=== PATIENT | female | born 1990 | race Caucasian/White ===

== ENCOUNTER 2020-10-13 20:26 | Emergency (ER) | payer MEDICAID, SELFPAY ==
--- NOTE | ~2020-10-13 | CT_ITS ---
EXAMINATION: CT ABDOMEN AND PELVIS WITH CONTRAST CLINICAL INFORMATION: Left-sided abdominal pain. Question hernia. COMPARISON: Previous CT of the abdomen and pelvis 03/28/2011 and pelvic ultrasound July 2016 TECHNIQUE: Multidetector volumetric images were obtained from the superior aspect of the liver through the pubic symphysis following administration of 97 mL of Omnipaque 350 intravenous contrast. Sagittal and coronal reformatted images were obtained on the technologist's workstation. Oral contrast: Yes This CT examination was performed using dose optimization techniques as appropriate, variously including the following: *Automated exposure control *Adjustment of mA and/or kV according to patient size (this includes techniques or standardized protocols for targeted exams where dose is matched to indication/reason for exam; i.e. extremities or head) *Use of iterative reconstruction technique DLP: 1291 mGy-cm FINDINGS: LUNG BASES: The visualized lung bases are unremarkable. LIVER, GALLBLADDER, AND BILIARY TREE: The liver is low in attenuation suggestive of fatty infiltration. The liver is slightly enlarged. There are gallstones in the gallbladder. There is no biliary duct dilatation. PANCREAS: Unremarkable. SPLEEN: Unremarkable. ADRENAL GLANDS: Unremarkable. KIDNEYS AND URETERS: The kidneys are normal in size, shape, and attenuation. No hydronephrosis, hydroureter, or calculi seen. No perinephric stranding. BLADDER: Unremarkable. GASTROINTESTINAL TRACT: The small and large bowel are unremarkable. The appendix is unremarkable. ABDOMINAL WALL: There is a small umbilical hernia containing fat. LYMPH NODES: Normal. VASCULAR: Unremarkable. PELVIC VISCERA: Uterus and ovaries are unremarkable. OSSEOUS STRUCTURES: Unremarkable. CT/CT abdomen pelvis w con IMPRESSION: Enlarged fatty liver. Small umbilical hernia containing fat.
[2020-10-13 20:36] VITALS: BP 136/67; PULSE 92; RESP 16; TEMP 36.3; O2SAT 98; BMI 52.7
--- NOTE | 2020-10-13 21:08 | ED.GENADULT ---
HPI - General Adult General Chief complaint: General Medical Stated complaint: ABD PAIN Time Seen by Provider: 10/13/20 21:08 Source: patient Mode of arrival: ambulatory History of Present Illness HPI narrative: This is a 29-year-old female without significant past medical history who presents with left sided abdominal pain for 2 months and has not been associated with any fevers, chills, night sweats, unexplained weight loss, nausea/vomiting, shortness of breath/chest pain/palpitations, urinary pain/burning/frequency, and patient has continued to have regular bowel movements daily. She states that the abdominal pain is worse with standing for long periods of time and that she has difficulty with laying on her left side as this causes increased discomfort. In addition, patient described feeling a ?lump?. In addition, patient complaints of left lower leg swelling that she attributes primarily to her job which requires her to stand without much change in position, this swelling generally resolves during sleeping when her legs are elevated. Related Data Allergies Allergy/AdvReac Type Severity Reaction Status Date / Time amoxicillin Allergy Unknown unknown Verified 10/13/20 20:34 Review of Systems Review of Systems: Pertinent positives and negatives as stated in HPI 10 point review of systems is otherwise negative. PMFSH Past Medical History Source: nursing notes reviewed Medical History Asthma Pre-eclampsia Social History Social History Advance Directives: No Advance Directives Information Provided: Yes Physical Exam Vital Signs: Vital Signs: Last Vital Signs Temp 97.3 F 10/13/20 20:36 Pulse 102 H 10/13/20 22:18 Resp 16 10/13/20 22:18 BP 126/68 10/13/20 22:18 Pulse Ox 98 10/13/20 22:18 Body Mass Index 52.7 VITAL SIGNS: Reviewed. GENERAL: Well developed, well nourished, in no acute distress. HEAD: Normocephalic/atraumatic EYES: PERRLA, EOMI NOSE: Nares patent bilateral OROPHARYNX: no oral lesions noted, posterior pharynx clear NECK: Supple, no adenopathy LUNGS: Normal breath sounds. No adventitious sounds or accessory muscle use. SpO2<98> CARDIOVASCULAR: Regular rate and rhythm without noted murmurs ABDOMEN: Obese, Soft, non-tender, non-distended with bowel sounds. Exam limited by body habitus EXTREMITIES: No cyanosis, clubbing or edema. NEUROLOGIC: Alert and oriented x 4. Strength and sensation to light touch were grossly intact x 4. Course Course Course Narrative: 29-year-old female with history and clinical presentation suggestive of possible lipoma versus hernia. On review of all investigations there are no acute findings to better explain the pain that patient is having. Despite a fat containing umbilical hernia being identified on the CT scan this is not in the location of patient's pain. Discussed with the patient at bedside and she was discharged in stable condition with instructions to follow-up with her primary care provider for further outpatient evaluation. Medical Decision Making Lab Data Result diagrams: 10/13/20 21:11 10/13/20 21:11 Labs: Lab Results 10/13/20 10/13/20 10/13/20 Range/Units 21:11 21:11 21:11 WBC 7.2 (4.8-10.8) X10*3/uL RBC 4.22 (4.20-5.50) X10*6/uL Hgb 11.5 L (12.0-16.0) g/dl Hct 36.4 L (37-47) % MCV 86.3 (80-98) fL MCH 27.3 (27.0-33.0) pg MCHC 31.6 (31.0-35.0) g/dl RDW 13.9 (11.0-16.0) % Plt Count 322 (160-400) X10*3/uL MPV 9.4 (9.4-12.3) fL Absolute Nucleated RBC 0.000 (0.0-0.012) X10*3/uL Nucleated RBC % (auto) 0.0 (0.0-0.2) /100WBC Hold Blue Top Sodium 139 (135-145) mmol/L Potassium 4.2 (3.3-5.1) mmol/L Chloride 106 (96-108) mmol/L Carbon Dioxide 24 (22-29) mmol/L Anion Gap 13 (12-20) BUN 11 (9-16) mg/dL Creatinine 0.74 (0.5-1.4) mg/dL Estim Creat Clear Calc 137.4 Estimated GFR > 60 Random Glucose 101 (60-115) mg/dL Calcium 9.0 (8.4-10.2) mg/dL Total Bilirubin 0.4 (0.0-1.0) mg/dL AST 16 (5-31) U/L ALT 12 (0-31) U/L Alkaline Phosphatase 68 (39-117) U/L B-Natriuretic Peptide 48 (<100) pg/mL Total Protein 7.5 (6.5-8.0) g/dL Albumin 4.1 (3.5-5.0) g/dL Urine Color Urine Appearance Urine pH (5.0-8.0) Ur Specific [place] (1.005-1.025) Urine Protein (NEG-TRACE) MG/DL Urine Glucose (UA) (NEG) MG/DL Urine Ketones (NEG) MG/DL Urine Blood (NEG) Urine Nitrite (NEG) Ur Leukocyte Esterase (NEG) Urine Test (NEGATIVE) 10/13/20 10/13/20 10/13/20 Range/Units 21:11 21:11 21:11 WBC (4.8-10.8) X10*3/uL RBC (4.20-5.50) X10*6/uL Hgb (12.0-16.0) g/dl Hct (37-47) % MCV (80-98) fL MCH (27.0-33.0) pg MCHC (31.0-35.0) g/dl RDW (11.0-16.0) % Plt Count (160-400) X10*3/uL MPV (9.4-12.3) fL Absolute Nucleated RBC (0.0-0.012) X10*3/uL Nucleated RBC % (auto) (0.0-0.2) /100WBC Hold Blue Top SEE NOTE Sodium (135-145) mmol/L Potassium (3.3-5.1) mmol/L Chloride (96-108) mmol/L Carbon Dioxide (22-29) mmol/L Anion Gap (12-20) BUN (9-16) mg/dL Creatinine (0.5-1.4) mg/dL Estim Creat Clear Calc Estimated GFR Random Glucose (60-115) mg/dL Calcium (8.4-10.2) mg/dL Total Bilirubin (0.0-1.0) mg/dL AST (5-31) U/L ALT (0-31) U/L Alkaline Phosphatase (39-117) U/L B-Natriuretic Peptide (<100) pg/mL Total Protein (6.5-8.0) g/dL Albumin (3.5-5.0) g/dL Urine Color YELLOW Urine Appearance CLEAR Urine pH 6.0 (5.0-8.0) Ur Specific [place] >= 1.030 H (1.005-1.025) Urine Protein NEG (NEG-TRACE) MG/DL Urine Glucose (UA) NEG (NEG) MG/DL Urine Ketones NEG (NEG) MG/DL Urine Blood NEG (NEG) Urine Nitrite NEG (NEG) Ur Leukocyte Esterase NEG (NEG) Urine Test NEGATIVE (NEGATIVE) Discharge Plan Discharge Clinical Impression: Hernia, umbilical, Abdominal discomfort in left upper quadrant Patient Disposition: Home, Self-Care Instructions: Umbilical Hernia (ED), Abdominal Pain (ED) Additional Instructions: 1. Tylenol 1000 mg, orally, every 6 hours as needed for pain control. Do not exceed 4000 mg within 24 hours. 2. Ibuprofen 400 mg, orally with milk or food, every 6 hours as needed for pain control. 3. Recommend compression stockings for your bilateral lower legs while at work. These are available [id number]. 4. Please follow-up with your primary care provider in the next 2-3 days for further outpatient re-evaluation. Do not hesitate to return to the emergency room for any acute worsening of your symptoms. Referrals: [facility] [Primary Care Provider] - 2 days
--- NOTE | 2020-10-13 21:11 | PC.NURSE ---
Labs and UA obtained, awaiting primary MD eval.
[2020-10-13 21:27] LABS: Glucose Urine UA NEG (NEG); Leukocyte Esterase Urine NEG (NEG); Nitrite Urine NEG (NEG); Specific Gravity - Urine >= 1.030 (1.005-1.025); Urine Blood NEG (NEG); Urine Ketones NEG (NEG); Urine Protein NEG (NEG-TRACE)
[2020-10-13 21:28] LABS: Hematocrit 36.4 % (37-47); Hemoglobin 11.5 g/dl (12.0-16.0); Mean Corpuscular HGB Conc 31.6 g/dl (31.0-35.0); Mean Corpuscular Hemoglobin 27.3 pg (27.0-33.0); Mean Corpuscular Volume 86.3 fL (80-98); Mean Platelet Volume 9.4 fL (9.4-12.3); Platelet Count 322 X10*3/uL (160-400); Red Blood Count 4.22 X10*6/uL (4.20-5.50); Red Cell Distribution Width 13.9 % (11.0-16.0); White Blood Count 7.2 X10*3/uL (4.8-10.8)
[2020-10-13 21:32] LABS: Appearance Urine CLEAR; Color Urine YELLOW; UPreg QC Valid YES; Urine Pregnancy NEGATIVE (NEGATIVE)
[2020-10-13 21:56] LABS: Alanine Aminotransferase 12 U/L (0-31); Albumin Level 4.1 g/dL (3.5-5.0); Alkaline Phosphatase 68 U/L (39-117); Anion Gap 13 (12-20); Aspartate Amino Transferase 16 U/L (5-31); Bilirubin Total 0.4 mg/dL (0.0-1.0); Blood Urea Nitrogen 11 mg/dL (9-16); Carbon Dioxide 24 mmol/L (22-29); Chloride 106 mmol/L (96-108); Creatinine Clr Calc Pharmacy 137.4; Estimated Glomerular Filt Rate > 60; Glucose Random 101 mg/dL (60-115); Potassium 4.2 mmol/L (3.3-5.1); Sodium 139 mmol/L (135-145); Total Protein 7.5 g/dL (6.5-8.0)
[2020-10-13 22:03] LABS: B Type Natriuretic Peptide 48 pg/mL (<100)
[2020-10-13 22:18] VITALS: BP 126/68; PULSE 102; RESP 16; O2SAT 98
--- NOTE | 2020-10-13 22:18 | PC.NURSE ---
IV established, labs obtained. VSS. Pt aware of plan for CT. Continue to monitor.
[2020-10-13] MEDS: 0.9 % Sodium Chloride 1,000 ML 999 ML IV (22:19)
--- NOTE | 2020-10-13 22:35 | PC.NURSE ---
Pt ambulating to CT.
[2020-10-13] MEDS: iohexoL 350 MG/ML 100 ML INFUS..BTL IV (22:49)
== END 2020-10-13 23:37 | disposition home or self-care (01) ==
PROVIDERS: Emergency Provider Student in an Organized Health Care Education/Training Program
DX: K42.9 Umbilical hernia without obstruction or gangrene (principal); R10.30 Lower abdominal pain, unspecified; M79.89 Other specified soft tissue disorders
CPT/HCPCS: 36415; 74177; 80053; 81003; 81025; 83880; 85027; 96365; 96375; 99284; Q9967

== ENCOUNTER → 2022-10-17 09:45 | Outpatient (BNVA) | payer OTHER, MEDICAID, SELFPAY | PROVIDERS: Visit Provider Nurse Practitioner Family ==

== ENCOUNTER → 2022-11-14 09:48 | Outpatient (REF) | payer OTHER, MEDICAID, SELFPAY | LOC: HO.SL 09:48 | PROVIDERS: Visit Provider Nurse Practitioner Family | DX: G47.33 Obstructive sleep apnea (adult) (pediatric) (principal) | CPT/HCPCS: 95806 ==

== ENCOUNTER 2025-05-19 15:05 | Outpatient (REF) | payer OTHER, MEDICAID, SELFPAY ==
--- OUTSIDE RECORDS SUMMARY | 2025-05-18 15:40 | XMS_ITS | Encounter Summary ---
Author Organization [employer] Address [address] [facility] [address] [place] [address] Care Team Providers Care Medical Typist Name Role Phone Mago Street MD Primary Care Provider [phone] Reason for Referral * Imaging (STAT) - Authorized Specialty Diagnoses / Procedures Referred By Contac t Referred To Contact Cardiology Diagnoses Spontaneous bruising Pain of right calf Procedures Vascular US lower extremity venous duplex right Kait Campa NP [address] [place] [address] Phone: tel: fax: [address] [address] Phone: tel: fax: Referral ID Status Reason Start Date Expiration Date Visits Requested Visits Authorized [id number] Authorized Perform Procedure 5 05/19/2026 1 1 Encounter Details Date Type Department Care Team (Late st Contact Info) Description 05/18/2025 3:40 PM EST Office Visit [facility] [address], [place] [phone] Kait Campa NP [address], [place] [phone] Elevated blood pressure reading in office without diagnosis of hypertension (Primary Dx); Spontaneous bruising; Pain of right calf; Bilateral lower extremity edema Social History Tobacco Use Types Packs/Day Years Used Date Smoking Tobacco: Never Smokeless Tobacco: Never Housing Stability Answer Date Recorded What is your housing situation today? I have housing today, but I am worried about losing housing in the future 04/14/[address] you li ve. Do you have problems with any of the following? None of the above 04/14/2023 Food Insecurity Answer Date Recorded Within the past 12 months, y ou worried that your food would run out before you got money to buy more: Never True 04/14/2023 Within the past 12 months,th e food you bought just didn't last and you didn't have enough money to get more: Never True 11/2022 Transportation Answer Date Recorded In the past 12 months, has l ack of transportation kept you from medical appts, meetings, work or from getting things needed for daily living? No 04/14/2023 Utilities Answer Date Recorded In the past 12 months, has t he electric, gas, oil or water company threatened to shut off services in your home? No 04/14/2023 Depression Answer Date Recorded Patient Health Questionnaire-2 Score 0 06/21/2022 Comments Unknown Sex and Gender Information Value Date Recorded Sex Assigned at Female 04/08/2022 10:18 AM EDT Legal Sex Female 10:18 AM EDT Gender Identity Female 04/08/2022 10:18 AM EDT Sexual Orientation Straight 04/08/2022 10 :18 AM EDT documented as of this encounter Last Filed Vital Signs Vital Sign Reading Time Taken Comments Blood Pressure 159/108 05/18/2025 4:01 PM EST Pulse 100 05/18/2025 4:01 PM EST Temperature 37.6 C (99.6 F) 05/18/2025 4:01 PM EST Respiratory Rate 25 05/18/2025 4:01 PM EST Oxygen Saturation 98% 05/18/2025 4:01 PM EST Inhaled Oxygen Concentration - - Weight 118 kg (261 lb) 05/18/2025 4:01 PM EST Height 152.4 cm (5') 05/18/2025 4:01 PM EST Body Mass Index 50.97 05/18/2025 4:01 PM EST documented in this encounter Progress Notes * Kait Campa NP - 05/18/2025 3:40 PM EST Images from the original note were not included. SUBJECTIVE: Rupali Macdonald is a 34 y.o. female who presents with complaints of: right calf pain and bruising Rupali Macdonald, 34-year-old female - Noticed tight feeling in right calf area starting Monday, May 12, 2025, after standing in [employer] for 8 hours at work - Sharp pain in right calf on Saturday, May 17, 2025, followed by appearance of bruise in same area - Persistent mild pain in right calf, worsens with prolonged sitting, improves with walking - Swelling in right leg, more prominent than left, ongoing for approximately 3 months - Occasional random bruises in the past, but not spontaneous bruising without trauma - Denies history of hitting leg or trauma to affected area - Denies random gum bleeding, dark colored stool, heavy breathing, dizziness, chest pain, shortnessof breath - Concerned about possible blood clot due to symptoms and online information - Reports taking control inconsistently and frequent use of Benadryl for intermittent hives around neck and face, resolves with medication - No recent travel Review of Systems Constitutional: Negative. Negative for chills and fever. Respiratory: Negative for chest tightness and shortness of breath. Cardiovascular: Negative for chest pain. Gastrointestinal: Negative for abdominal pain, constipation, diarrhea and nausea. Genitourinary: Negative for dysuria. Musculoskeletal: Positive for myalgias. Negative for arthralgias, back pain and neck pain. See HPI Skin: Negative. Negative for rash and wound. Neurological: Negative for weakness, light-headedness and headaches. Psychiatric/Behavioral: Negative for behavioral problems, confusion, decreased concentration and suicidal ideas. Current Medications[1] Allergies[2] OBJECTIVE: Vitals: 05/18/25 1601 BP: (!) 159/108 BP Location: Right arm Patient Position: Sitting BP Cuff Size: Large adult Pulse: 100 Resp: 25 Temp: 99.6 ??F (37.6 ??C) TempSrc: Oral SpO2: 98% Weight: 261 lb (118 kg) Height: 5' (1.524 m) Physical Exam Vitals reviewed. Constitutional: General: She is not in acute distress. Appearance: Normal appearance. She is not ill-appearing. HENT: Head: Normocephalic and atraumatic. Right Ear: External ear normal. Left Ear: External ear normal. Nose: Nose normal. Eyes: General: No scleral icterus. Extraocular Movements: Extraocular movements intact. Cardiovascular: Rate and Rhythm: Normal rate and regular rhythm. Pulses: Normal pulses. Heart sounds: Normal heart sounds. Pulmonary: Effort: Pulmonary effort is normal. No respiratory distress. Breath sounds: Normal breath sounds. Musculoskeletal: General: Normal range of motion. Cervical back: Normal range of motion. Skin: General: Skin is warm. Findings: Bruising and ecchymosis present. Comments: See image below Neurological: General: No focal deficit present. Mental Status: She is alert and oriented to person, place, and time. Gait: Gait normal. Psychiatric: Mood and Affect: Mood normal. Behavior: Behavior normal. ASSESSMENT/PLAN: Elevated blood pressure reading in office without diagnosis of hypertension: - Elevated blood pressure noted in office today and during last visit (08/18/24). Asymptomatic. No current antihypertensive therapy. - Discussed initiatiation of antihypertensive medication with scheduled follow- up appointment with primary care provider on June 15, 2024 at 3:30 PM. - Will send labetalol 100 mg BID to pharmacy on file. Selected labetalol over other first line agents due to patient's inconsistent use of OCP in last 2 weeks, unclear status and prexistingbilateral lower extremity edema report. Recommended blood pressure monitoring at home at least three times per week. Scheduled nurse visit for blood pressure check in approximately two weeks. - Diet and lifestyle modifications reviewed - Risks and side effects: Discussed potential risks of uncontrolled hypertension, including syncopeand stroke. Patient consented to initiation of medication. Unilateral calf pain, ecchymosis, and edema with concern for deep vein thrombosis or muscle injury: - Differential diagnosis includes deep vein thrombosis and muscle injury. Concern for clot due to unilateral swelling and ecchymosis. - Ordered right lower extremity ultrasound to evaluate for deep vein thrombosis. - Ordered laboratory studies to eval for futher evlauation of electrolyte disturbances and possiblebleding disorder including complete blood count and coagulation profile to assess for bleeding disorder. - Outlined area of ecchymosis for monitoring. - Advised to seek emergency care if dyspnea, increased swelling, or expansion of ecchymosis occurs. Recurrent urticaria: - Recurrent urticaria managed with antihistamines. - F/u with PCP Assessment & Plan Elevated blood pressure reading in office without diagnosis of hypertension Orders: labetalol (Normodyne) 100 MG tablet; Take 1 tablet (100 mg) by mouth 2 times daily. Spontaneous bruising Orders: Comprehensive Metabolic Panel; Future CBC auto differential; Future Prothrombin Time-INR; Future Partial Thromboplastin Time, Activated (APTT); Future Vascular US lower extremity venous duplex right; Future Pain of right calf Orders: Vascular US lower extremity venous duplex right; Future Bilateral lower extremity edema -chronic -follow-up with PCP Future Appointments Date Time Provider Department Center 06/07/2025 3:30 PM [facility] TEAM NURSE MEDICINE [facility] 06/15/2025 3:[address] MD MEDICINE [facility] This note was drafted using Ambient (AI) technology. The patient/patient's guardian has been informed and has consented to the use of this technology: Yes [1] Current Outpatient Medications: betamethasone valerate (Valisone) 0.1 % cream, Apply topically 2 times daily., Disp: 30 g, Rfl: 0 Blood Pressure kit, 1 each 2 times daily., Disp: 1 kit, Rfl: 0 cetirizine (ZyrTEC) 10 MG tablet, Take 1 tablet (10 mg) by mouth Once per day. Prn., Disp: 30 tablet, Rfl: 0 EPINEPHrine (Epipen) 0.3 MG/0.3ML injection syringe, Inject 0.3 mL (0.3 mg) as directed 1 (one) time if needed for anaphylaxis. Inject into upper leg. Call 911 after use., Disp: 2 each, Rfl: 0 ferrous sulfate (Fe Tabs) 325 (65 Fe) MG EC tablet, Take one tab po daily. Do not crush, chew, or split., Disp: 90 tablet, Rfl: 11 hydrOXYzine pamoate (Vistaril) 25 MG capsule, Take 1 capsule (25 mg) by mouth every 6 (six) hours if needed for itching. May take 2 capsules q 6 hours prn. May cause drowsinees, Disp: 40 capsule, Rfl: 0 labetalol (Normodyne) 100 MG tablet, Take 1 tablet (100 mg) by mouth 2 times daily., Disp: 60 tablet, Rfl: 1 levothyroxine (Synthroid, Levoxyl) 50 MCG tablet, TAKE ONE TABLET BY MOUTH EVERY DAY, Disp: 90 tablet, Rfl: 0 Yft-Dn-Dhbcjd 0.18/0.215/0.25 MG-25 MCG tablet, TAKE 1 TABLET BY MOUTH EVERY DAY, Disp: 84 tablet, Rfl: 3 [2] Allergies Allergen Reactions Amoxicillin documented in this encounter Plan of Treatment Upcoming Encounters Date Type Department Care Team (Late st Contact Info) Description 06/07/2025 3:30 PM EST Clinical Support [facility] [address] [place] [phone] 06/15/2025 3:30 PM EST Office Visit [phone] Mago [address] MD [address] [place] [phone] documented as of this encounter Procedures Procedure Name Priority Date/Time Associated Diagnosis Comments CBC WITH AUTO DIFFERENTIAL Routine 05/19/2025 3:08 PM EST Spontaneous bruising APTT Routine 05/19/2025 3:08 PM EST Spontaneous bruising PROTHROMBIN TIME-INR Routine 05/19/2025 3:08 PM EST Spontaneous bruising COMPREHENSIVE METABOLIC PANEL Routine 05/19/2025 3:08 PM EST Spontaneous bruising documented in this encounter Results * Partial Thromboplastin Time, Activated (APTT) (05/19/2025 3:08 PM EST) Partial Thromboplastin Time 28.6 26.7 - 34.1 [facility] Blood Venous blood specimen / Unknown 05/19/2025 3:08 PM EST 05/19/2025 5:48 PM EST us Kait Campa NP LAB BLOOD ORDERABLES Final Resu lt [facility] [address] [place] [address] [phone] * Prothrombin Time-INR (05/19/2025 3:08 PM EST) [facility] Prothrombin Time 11.4 11.2 - 13.5 [facility] INTERNATIONAL NORM RATIO 0.9 0.9 - 1.1 [facility] Comment:INTERNATIONAL NORMAL IZED RATIO (INR) REFERENCE RANGES Reference RangeFor patients not on anticoagulant therapy: 0.9 - 1.1INR ranges for oral anticoagulanttherapy:For prevention and treatment of venous thrombosis and pulmonary embolism: 2.0 - 3.0For acute myocardial infarction with aspirin therapy: 2.0 - 3.0For acute myocardial infarction without aspirin therapy: 3.0 - 4.0For patients with mechanical prosthetic heart valves: 2.5 - 3.5 Blood Venous blood specimen / Unknown 05/19/2025 3:08 PM EST 05/19/2025 5:48 PM EST Kait Campa [employer] LAB BLOOD ORDERABLES Final Resu lt [facility] [address] [place] [address] [phone] * (ABNORMAL) CBC auto differential (05/19/2025 3:08 PM EST) [facility] White Blood Count 7.3 4.8 - 10.8 X10*3/uL [facility] Red Blood Count 4.11(L) 4.20 - 5.50 X10*6/uL [facility] Hemoglobin 11.1(L) 12.0 - 16.0 g/dl [facility] Hematocrit 34.7(L) 37.0 - 47.0 % [facility] Mean Corpuscular Volume 84.4 80.0 - 98.0 fL [facility] Mean Corpuscular Hemoglobin 27.0 27.0 - 33.0 pg [facility] Mean Corpuscular HGB Conc 32.0 31.0 - 35.0 g/dl [facility] Red Cell Distribution Width 13.9 11.0 - 16.0 % [facility] Platelet Count 351 160 - 400 X10*3/uL [facility] Mean Platelet Volume 9.3(L) 9.4 - 12.3 fL [facility] Neutrophils Percent Auto 52.4 45 - 73 % [facility] Imm Gran Pct Auto 0.3 0.0 - 0.4 % [facility] Lymphocytes Percent Auto 37.6 20 - 40 % [facility] Monocytes Percent Auto 7.0 2 - 11 % [facility] Eosinophils Percent Auto 2.3 0 - 4 % [facility] Basophils Percent Auto 0.4 0 - 2 % [facility] NRBC Pct Auto 0.0 0.0 - 0.2 /100WBC [facility] Neutrophils Absolute Auto 3.8 2.0 - 8.3 x10*3/uL [facility] Imm Gran Abs Auto 0.02 0.00 - 0.03 X10*3/uL [facility] Lymphocytes Absolute Auto 2.7 1.2 - 4.9 X10*3/uL [facility] Monocytes Absolute Auto 0.5 0.1 - 1.2 X10*3/uL [facility] Eosinophils Absolute Auto 0.2 0.0 - 0.4 X10*3/uL [facility] Basophils Absolute Auto 0.0 0.0 - 0.2 X10*3/uL [facility] NRBC Abs Auto 0.000 0.0 - 0.012 X10*3/uL [facility] Blood Venous blood specimen / Unknown 05/19/2025 3:08 PM EST 05/19/2025 5:48 PM EST us Kait Campa [employer] LAB BLOOD ORDERABLES Final Resu lt [facility] [address] [place] [phone] * Comprehensive Metabolic Panel (05/19/2025 3:08 PM EST) Sodium 138 135 - 145 mmol/L [facility] Potassium 3.7 3.3 - 5.1 mmol/L [facility] Chloride 106 96 - 108 mmol/L [facility] Carbon Dioxide 24 22 - 29 mmol/L [facility] Anion Gap 12 12 - 20 [facility] Urea Nitrogen (BUN) 13 9 - 16 mg/dL [facility] Creatinine, Serum 0.55 0.5 - 1.4 mg/dL [facility] Estimated Glomerular Filt Rate >60 [facility] Comment:Chronic Kidney Disea se: Estimated GFR < 60 mL/min/1.71d0[place] Kidney Disease: Estimated GFR < 15 mL/min/1.73m2 Glucose 97 60 - 115 mg/dL [facility] Calcium 8.8 8.4 - 10.2 mg/dL [facility] Bilirubin, Total 0.3 0.0 - 1.0 mg/dL [facility] Aspartate Amino Transferase 23 5 - 31 U/L [facility] Alanine Aminotransferase 19 0 - 31 U/L [facility] Total Protein 7.3 6.5 - 8.0 g/dL [facility] Albumin Level 4.1 3.5 - 5.0 g/dL [facility] Alkaline Phosphatase 66 39 - 117 U/L [facility] Blood Venous blood specimen / Unknown 05/19/2025 3:08 PM EST 05/19/2025 5:48 PM EST Kait Avila [employer] LAB BLOOD ORDERABLES Final Resu lt [facility] [address] [place] [address] [phone] documented in this encounter Visit Diagnoses Diagnosis Elevated blood pressure reading in office without diagnosis of hypertension- Primary Spontaneous bruising Spontaneous ecchymoses Pain of right calf Bilateral lower extremity edema documented in this encounter Care Teams Medical Typist Relationship Specialty Start Date End Date Mago Street MD [address] [place] [phone] PCP - General Family Medicine 12/24/13 documented as of this encounter
[2025-05-19 17:52] LABS: MANUAL DIFF FLAG NO
[2025-05-19 18:24] LABS: INTERNATIONAL NORM RATIO 0.9 (0.9-1.1); Prothrombin Time 11.4 SEC (11.2-13.5)
[2025-05-19 18:25] LABS: Hematocrit 34.7 % (37.0-47.0); Hemoglobin 11.1 g/dl (12.0-16.0); Imm Gran Abs Auto 0.02 X10*3/uL (0.00-0.03); Imm Gran Pct Auto 0.3 % (0.0-0.4); Lymphocytes Absolute Auto 2.7 X10*3/uL (1.2-4.9); Mean Corpuscular HGB Conc 32.0 g/dl (31.0-35.0); Mean Corpuscular Hemoglobin 27.0 pg (27.0-33.0); Mean Corpuscular Volume 84.4 fL (80.0-98.0); NRBC Abs Auto 0.000 X10*3/uL (0.0-0.012); NRBC Pct Auto 0.0 /100WBC (0.0-0.2); Platelet Count 351 X10*3/uL (160-400); Red Blood Count 4.11 X10*6/uL (4.20-5.50); White Blood Count 7.3 X10*3/uL (4.8-10.8)
[2025-05-19 18:26] LABS: Alanine Aminotransferase 19 U/L (0-31); Albumin Level 4.1 g/dL (3.5-5.0); Alkaline Phosphatase 66 U/L (39-117); Anion Gap 12 (12-20); Aspartate Amino Transferase 23 U/L (5-31); Blood Urea Nitrogen 13 mg/dL (9-16); Calcium 8.8 mg/dL (8.4-10.2); Carbon Dioxide 24 mmol/L (22-29); Chloride 106 mmol/L (96-108); Estimated Glomerular Filt Rate > 60; Partial Thromboplastin Time 28.6 SEC (26.7-34.1); Potassium 3.7 mmol/L (3.3-5.1); Sodium 138 mmol/L (135-145); Total Protein 7.3 g/dL (6.5-8.0)
--- OUTSIDE RECORDS SUMMARY | 2025-05-19 22:37 | XMS_ITS | Clinical Summary ---
Author Organization [employer] Address [address] [facility] 7[address] [place] [address] Care Team Providers Care Associate Software Development Engineer Name Role Phone Mago Street MD Primary Care Provider [phone]- [phone] Allergies Active Allergy Reactions Criticality Noted Date Comments Amoxicillin 11/05/2012 Medications ferrous sulfate (Fe Tabs) 325 (65 Fe) MG EC tabletIndications: Iron deficiency Take one tab po daily. Do not crush, chew, or split. 90 tablet 11 06/27/19 23 Active cetirizine (ZyrTEC) 10 MG tablet Take 1 tablet (10 mg) by mouth Once per day. Prn. 30 tablet 08/19/19 25 Active EPINEPHrine (Epipen) 0.3 MG/0.3ML injection syringe Inject 0.3 mL (0.3 mg) as directed 1 (one) time if needed for anaphylaxis. Inject into upper leg. Call 911 after use. 2 each 08/19/19 25 026 Active hydrOXYzine pamoate (Vistaril) 25 MG capsule Take 1 capsule (25 mg) by mouth every 6 (six) hours if needed for itching. May take 2 capsules q 6 hours prn. May cause drowsinees 40 capsule 08/19/19 25 Active betamethasone valerate (Valisone) 0.1 % cream Apply topically 2 times daily. 30 g 08/19/19 25 Active Blood Pressure kit 1 each 2 times daily. 1 kit 08/19/19 25 026 Active levothyroxine (Synthroid, Levoxyl) 50 MCG tabletIndications: Acquired hypothyroidism TAKE ONE TABLET BY MOUTH EVERY DAY 90 tablet 08/31/19 25 Active Ixy-Vu-Tinxgw 0.18/0.215/0.25 MG-25 MCG tabletIndications: Family planning TAKE 1 TABLET BY MOUTH EVERY DAY 84 tablet 3 5 3:49 PM EST 02/10/20 25 Active labetalol (Normodyne) 100 MG tabletIndications: Elevated blood pressure reading in office without diagnosis of hypertension Take 1 tablet (100 mg) by mouth 2 times daily. 60 tablet 1 5 3:21 PM EST 05/19/20 25 026 Active NIFEdipine XL (Procardia XL) 30 MG 24 hr tabletIndications: Elevated blood pressure reading in office without diagnosis of hypertension Take 1 tablet (30 mg) by mouth Once per day. Do not crush, chew, or split. 30 tablet 1 05/19/20 25 025 Discontin ued(Alter frank therapy) Active Problems Problem Noted Date Diagnosed Date Preventative health care 11/19/2022 Overview (09/01/2024): -next comprehensive annual evaluation due after -eye care facilitated by -dental home is -gianluca care proxy Iron deficiency 11/19/2022 Overview (11/19/2022): Lab Results Component Value Date FERRITIN 5 (L) 06/21/2022 HGB 11.3 (L) 06/21/2022 HEMATOCRIT 34.3 (L) 06/21/2022 IRONTOTAL 51 06/21/2022 -ferrous sulfate restarted 06/27/2022 Acquired hypothyroidism 06/21/2022 Overview (11/19/2022): Lab Results Component Value Date TSH 6.69 (H) 06/21/2022 -levothyroxine 50mcg restarted 06/27/2022 Vitamin D deficiency 06/21/2022 Overview (11/19/2022): Vitamin D,1,25 (OH)2, Total Date Value Ref Range Status 06/21/2022 34 18 - 72 pg/mL Final Apnea 06/21/2022 Overview (11/19/2022): -seen by neurology at [facility] 10/2022, home sleep study ordered Snoring 06/21/2022 Family planning 06/21/2022 Overview (11/19/2022): -Pt likes to use control pills. All options discussed. -continue [id number] Assessment & Plan (06/21/2022 10:24 AM EST): Pt likes to use control pills. She does not like naxplonon. All options were discussed. Gynecologic exam normal 06/21/2022 Overview (06/21/2022): Pap co-testing done 06/21/2022. Assessment & Plan (06/21/2022 10:48 AM EST): Pap co-testing done 06/21/2022. Morbid obesity (CMS/HCC) 11/05/2012 Encounters Date Type Department Care Team Description 05/18/2025 3:40 PM EST Office Visit [facility] [address] [place] [phone] Kait Campa NP Elevated blood pressure reading in office without diagnosis of hypertension (Primary Dx); Spontaneous bruising; Pain of right calf; Bilateral lower extremity edema 05/18/2025 Travel from Last 3 Months Immunizations Immunization Administration Dates Next Due HPV, Quadrivalent 11/08/2013,07/24/2012 Influenza, IIV3, injectable 07/01/2014, 3,08/20/2011 Tdap 01/29/2012 Social History Tobacco Use Types Packs/Day Years Used Date Smoking Tobacco: Never Smokeless Tobacco: Never Tobacco Cessation:Counseling Given: Not Answered Housing Stability Answer Date Recorded What is [...] Orientation Straight 04/08/2022 10 :18 AM EDT Last Filed Vital Signs Vital Sign Reading [...] Mass Index 50.97 05/18/2025 4:01 PM EST Plan of Treatment Upcoming Encounters Date Type Department Care Team (Late st Contact Info) Description 06/07/2025 3:30 PM EST Clinical Support [facility] [address] [place] [address] [phone] 06/15/2025 3:30 PM EST Office Visit [facility] [address] [place] [address] MD [address] [place] [phone] Health Maintenance Due Date Last Done Comments Disability Screening 1992 Alcohol/Substance Use Screening 2004 Family Planning (PISQ) 11/18/2007 Hepatitis B Vaccines (1 of 3 - 19+ 3-dose series) 11/18/2011 HPV Vaccines (3 - 3-dose series) 01/31/2014 11/08/2013, 07/24/2012 DTaP/Tdap/Td Vaccines (2 - T d or Tdap) 01/28/2022 01/29/2012 Depression Screening 06/21/2023 06/21/2022, 06/21/2022 SDOH Screening 06/21/2023 06/21/2022 COVID-19 Vaccine (1 - 2024-2 6 season) 2025 Influenza Vaccine (#1) 2025 5, 07/06/2012, 08/20/2011 Tobacco Screening 05/19/2026 05/19/2025 Cervical Cancer Screening 06/21/2027 HPV/Cotest 06/21/2027 06/21/2022 Lipid Panel 06/21/2027 06/21/2022 Pap Smear 06/21/2027 06/21/2022 Zoster Vaccines (1 of 2) 2042 RSV Patients and Patients Aged 60 years or older (1 - 1-dose 75+ series) 11/18/2067 HIV Screening Completed 06/21/2022, 08/05/2019 Hepatitis C Screening Completed 06/21/2022 , 08/05/2019 HIB Vaccines Aged Out No longer eligi ble based on patient's age to complete this topic Hepatitis A Vaccines Aged Out No long er eligible based on patient's age to complete this topic IPV Vaccines Aged Out No longer eligi ble based on patient's age to complete this topic Meningococcal B Vaccine Aged Out No l onger eligible based on patient's age to complete this topic Meningococcal Vaccine Aged Out No isiah mikaela eligible based on patient's age to complete this topic Pneumococcal Vaccine: Pediatrics (0 to 5 Years) and At-Risk Patients (6 to 49) Years Aged Out No longer eligible b ased on patient's age to complete this topic RSV under 20 months Aged Out No longe r eligible based on patient's age to complete this topic Rotavirus Vaccines Aged Out No longer eligible based on patient's age to complete this topic Procedures Procedure Name Priority Date/Time Associated Diagnosis Comments APTT Routine 05/19/2025 3:08 PM EST Spontaneous bruising PROTHROMBIN TIME-INR Routine 05/19/2025 3:08 PM EST Spontaneous bruising CBC WITH AUTO DIFFERENTIAL Routine 05/19/2025 3:08 PM EST Spontaneous bruising COMPREHENSIVE METABOLIC PANEL Routine 05/19/2025 3:08 PM EST Spontaneous bruising HEPATITIS C AB W/REFL TO HCV RNA, QN, PCR Routine 06/21/2022 11:03 AM EST Routine screening for STI (sexually transmitted infection) HIV 1/2 ANTIGEN/ANTIBODY, FOURTH GENERATION W/RFL Routine 06/21/2022 11:03 AM EST Routine screening for STI (sexually transmitted infection) LIPID PANEL, STANDARD Routine 06/21/2022 11:03 AM EST Morbid obesity (CMS/HCC) THINPREP PAP, HPV MRNA E6/E7 RFX HPV 16,18/45, CHLAMYDIA/N.GONORRHOE AE Routine 06/21/2022 11:00 AM EST Encounter for gynecological examination without abnormal finding from Last 3 Months or Most Recently Relevant to Health Maintenance Results * (ABNORMAL) CBC auto differential (05/19/2025 3:08 PM EST) White Blood Count 7.3 4.8 - 10.8 X10*3/uL [facility] Red Blood Count 4.11(L) 4.20 - 5.50 X10*6/uL [facility] Hemoglobin 11.1(L) 12.0 - 16.0 g/dl [facility] Hematocrit 34.7(L) 37.0 - 47.0 % [facility] Mean Corpuscular Volume 84.4 80.0 - 98.0 fL [facility] Mean Corpuscular Hemoglobin 27.0 27.0 - 33.0 pg [facility] Mean Corpuscular HGB Conc 32.0 31.0 - 35.0 g/dl [facility] Red Cell Distribution Width 13.9 11.0 - 16.0 % [facility] Platelet Count 351 160 - 400 X10*3/uL [facility] Mean Platelet Volume 9.3(L) 9.4 - 12.3 fL [facility] Neutrophils Percent Auto 52.4 45 - 73 % [facility] Imm Gran Pct Auto 0.3 0.0 - 0.4 % [facility] Lymphocytes Percent Auto 37.6 20 - 40 % [facility] Monocytes Percent Auto 7.0 2 - 11 % [facility] Eosinophils Percent Auto 2.3 0 - 4 % [facility] Basophils Percent Auto 0.4 0 - 2 % [facility] NRBC Pct Auto 0.0 0.0 - 0.2 /100WBC [facility] Neutrophils Absolute Auto 3.8 2.0 - 8.3 x10*3/uL [facility] Imm Gran Abs Auto 0.02 0.00 - 0.03 X10*3/uL [facility] Lymphocytes Absolute Auto 2.7 1.2 - 4.9 X10*3/uL [facility] Monocytes Absolute Auto 0.5 0.1 - 1.2 X10*3/uL [facility] Eosinophils Absolute Auto 0.2 0.0 - 0.4 X10*3/uL [facility] Basophils Absolute Auto 0.0 0.0 - 0.2 X10*3/uL [facility] NRBC Abs Auto 0.000 0.0 - 0.012 X10*3/uL [facility] Blood Venous blood specimen / Unknown 05/19/2025 3:08 PM EST 05/19/2025 5:48 PM EST us Kait Campa NP LAB BLOOD ORDERABLES Final Resu lt [facility] [address] [place] [address] [phone] * Partial Thromboplastin Time, Activated (APTT) (05/19/2025 3:08 PM EST) Partial Thromboplastin Time 28.6 26.7 - 34.1 SEC [facility] Blood Venous blood specimen / Unknown 05/19/2025 3:08 PM EST 05/19/2025 5:48 PM EST [facility] KITCHEN [employer]CH[employer]IC LAB BLOOD ORDERABLES Final Resu lt [facility] [address] [place] [address] [phone] * Prothrombin Time-INR (05/19/2025 3:08 PM EST) Pathologist [facility] Prothrombin Time 11.4 11.2 - 13.5 SEC [facility] INTERNATIONAL NORM RATIO 0.9 0.9 - 1.1 [facility] Comment:INTERNATIONAL NORMAL IZED RATIO (INR) REFERENCE [...] 3:08 PM EST 05/19/2025 5:48 PM EST Replaced by [facility] LAB BLOOD ORDERABLES Final Resu lt [facility] [address] [place] [address] [phone] * Comprehensive Metabolic Panel (05/19/2025 3:08 PM EST) Pathologist [facility] Sodium 138 135 - 145 mmol/L [facility] Potassium 3.7 3.3 - 5.1 mmol/L [facility] Chloride 106 96 - 108 mmol/L [facility] Carbon Dioxide 24 22 - 29 mmol/L [facility] Anion Gap 12 12 - 20 [facility] Urea Nitrogen (BUN) 13 9 - 16 mg/dL [facility] Creatinine, Serum 0.55 0.5 - 1.4 mg/dL [facility] Estimated Glomerular Filt Rate >60 [facility] Comment:Chronic Kidney Disea se: Estimated GFR < 60 mL/min/[id number] Kidney Disease: Estimated GFR < 15 mL/min/1.73m2 Glucose 97 60 - 115 mg/dL [facility] Calcium 8.8 8.4 - 10.2 mg/dL [facility] Bilirubin, Total 0.3 0.0 - 1.0 mg/dL [facility] Aspartate Amino Transferase 23 5 - 31 U/L [facility] Alanine Aminotransferase 19 0 - 31 U/L [facility] Total Protein 7.3 6.5 - 8.0 g/dL [facility] Albumin Level 4.1 3.5 - 5.0 g/dL [facility] Alkaline Phosphatase 66 39 - 117 U/L [facility] Blood Venous blood specimen / Unknown 05/19/2025 3:08 PM EST 05/19/2025 5:48 PM EST us Kait Campa KITCHEN MECHANIC LAB BLOOD ORDERABLES Final Resu lt [facility] [address] [place] [address] [phone] * Hepatitis C Antibody with Reflex to HCV, RNA, Quantitative, Real-Time PCR (06/21/2022 11:03 AM EST) Hepatitis C Antibody NON-REACT ALDAIR NON-REACT ALDAIR [facility] [place] [facility] [facility] Index 0.09 <1.00 [facility] Comment: HCV antibody was non-reactive. There is no laboratory evidence of HCV infection. In most cases, no further action is required. However, if recent HCV exposure is suspected, a test for HCV RNA (test code 24555) is suggested. For additional information please refer to http://SinglePlatform.NewBay/faq/DFR36p2 (This link is being provided for informational/ educational purposes only.) Blood Venous blood specimen / Unknown 06/21/2022 11:03 AM EST 06/21/2022 11:03 AM EST Narrative [facility] - 06/26/2022 5:57 PM EST FASTING:YES FASTING: YES Mago Street MD LAB BLOOD ORDERABLES Final Result [place] [address] [facility], [place] [address] [facility] [employer] [facility] [address] [facility], (N[address]) [place] [address] * HIV-1/2 Antigen and Antibodies, Fourth Generation, with Reflexes (06/21/2022 11:03 AM EST) Pathologist [facility] HIV Antigen/Antibody, 4th Generation NON-REAC TIVE NON-REAC TIVE [facility] [place] [facility] Comment: HIV-1 antigen and HIV-1/HIV-2 antibodies were not detected. There is no laboratory evidence of HIV infection. PLEASE NOTE: This information has been disclosed to you from records whose confidentiality may be protected by state law. If your state requires such protection, then the state law prohibits you from making any further disclosure of the information without the specific written consent of the person to whom it pertains, or as otherwise permitted by law. A general authorization for the release of medical or other information is NOT sufficient for this purpose. For additional information please refer to http://education.Hopper.Evident Software/faq/HSM057 (This link is being provided for informational/ educational purposes only.) The performance of this assay has not been clinically validated in patients less than 2 years old. Blood Venous blood specimen / Unknown 06/21/2022 11:03 AM EST 06/21/2022 11:03 AM EST Narrative [facility] - 06/26/2022 5:57 PM EST FASTING:YES FASTING: YES Mago Street MD LAB BLOOD ORDERABLES Final Result Performing Organization Address City/[facility]/ZIP Co de Phone Number [facility] [address] [place] [address] [facility] [address] [facility], (N[address]) [place] [address] * (ABNORMAL) Lipid Panel, Standard (06/21/2022 11:03 AM EST) Cholesterol, Total 151 <200 mg/dL [facility] HDL Cholesterol 37(L) > OR = 50 mg/dL [facility] Triglycerides 188(H) <150 mg/dL [facility] LDL Cholesterol 86 mg/dL (calc) [facility] [employer] Comment: Reference range: <100 Desirable range <100 mg/dL for primary prevention; <70 mg/dL for patients with CHD or diabetic patients with > or = 2 CHD risk factors. LDL-C is now calculated using the Jose calculation, which is a validated novel method providing better accuracy than the Friedewald equation in the estimation of LDL-C. Juan Daniel CREWS et al. ARIN. 2013;310(19): 2260-8151 (http://education.HangIt/faq/ZGG262) Chol/HDLC Ratio 4.1 <5.0 (calc) [facility] Non-HDL Cholesterol 114 <130 mg/dL (calc) [facility] Comment: For patients with diabetes plus 1 major ASCVD risk factor, treating to a non-HDL-C goal of <100 mg/dL (LDL-C of <70 mg/dL) is considered a therapeutic option. Blood Venous blood specimen / Unknown 06/21/2022 11:03 AM EST 06/21/2022 11:03 AM EST Narrative [facility] - 06/26/2022 5:57 PM EST FASTING:YES FASTING: YES Mago Street MD LAB BLOOD ORDERABLES Final Result Performing Organization Address City/[facility]/ZIP Co de Phone Number [address], [place] [address] [facility] [address] [place] [address], (Nl2) [place] [address] * Thinprep PAP, HPV mRNA E6/E7 RFX HPV 16,18/45, Chlamydia/N. Gonorrhoeae (06/21/2022 11:00 AM EST) Clinical Information: CERVICAL [facility] LMP: NONE GIVEN [facility] [place] [facility] Prev. PAP: NO [facility] [place] [facility] Prev. BX: NO [facility] [place] [facility] SOURCE: Cervix [facility] Statement Of Adequacy: [facility] [employer] [facility] Comment: Satisfactory for evaluation. Endocervical/transformation zone component present. Interpretation/Re sult: Negative for intraepithelial lesion or malignancy. [facility] Data Support Specialist: Khris [facility] Comment: JXM, CT(ASCP) CT screening location: [place] [address] (Always Message) [facility] [employer] Comment: EXPLANATORY NOTE: The Pap is a screening test for cervical cancer. It is not a diagnostic test and is subject to false negative and false positive results. It is most reliable when a satisfactory sample, regularly obtained, is submitted with relevant clinical findings and history, and when the Pap result is evaluated along with historic and current clinical information. HPV nRNA E6/E7 Not Detected Not Detected [facility] [employer] Comment: Methodology: Filling Hauler Weaving-Mediated Amplification This assay detects E6/E7 viral messenger RNA (mRNA) from 14 high-risk HPV types (16,18,31,33,35,39,45,51,52,56,58,59,66,68). Cervical sources are required for HPV testing. If a vaginal source from a patient who has had a total hysterectomy with removal of cervix was submitted, please contact the testing laboratory for alternative testing options. For additional information, please refer to http://education.NewBay/faq/AQL601m2 (This link if provided for information/ educational purposes only.) Chlamydia trachomatis RNA, TMA, Urogenital NOT DETECTED NOT DETECTED [facility] Neisseria gonorrhoeae RNA, TMA, Urogenital NOT DETECTED NOT DETECTED [facility] Comment [facility] [place] [facility] Comment: The analytical performance characteristics of this assay, when used to test SurePath(TM) specimens have been determined by [facility]. The modifications have not been cleared or approved by the FDA. This assay has been validated pursuant to the CLIA regulations and is used for clinical purposes. For additional information, please refer to https://education.NewBay/faq/ALZ065 (This link is being provided for information/ educational purposes only.) Cytology specimen container (physical object) 06/21/2022 11:00 AM EST 06/24/2022 9:[address] MD LAB PATHOLOGY ORDERABLES F inal Result [place] [address], [place] [address] [facility] [employer] [facility] [address] [facility], (N[address]2) [place] [address] from Last 3 Months or Most Recently Relevant to Health Maintenance Insurance OPEN ACCESS Care Teams Associate Software Development Engineer Relationship Specialty Start Date End Date Harding, MD Mago [address] [place] [phone] PCP - General Family Medicine 12/24/13
--- OUTSIDE RECORDS SUMMARY | 2025-05-19 22:37 | XMS_ITS | Encounter Summary ---
Author Organization [employer] Address [address] [place] [address] Care Team Providers Care Receiving Operator Name Role Phone Mago Street MD Primary Care Provider +1- [phone] Encounter Details Date Type Department Care Team (Latest Contact Info) Description 05/18/2025 Travel Social History Tobacco Use Types Packs/Day Years [...] AM EDT documented as of this encounter Plan of Treatment Upcoming Encounters Date Type Department Care Team (Late st Contact Info) Description 06/07/2025 3:30 PM EST Clinical Support [address] [phone] 06/15/2025 3:30 PM EST Office Visit [address] MD [address] [place] [phone] documented as of this encounter Visit Diagnoses Not on filedocumented in this encounter Care Teams Receiving Operator Relationship Specialty Start Date End Date Mago Street MD [address] [place] [phone] PCP - General Family Medicine 12/24/13 documented as of this encounter
--- OUTSIDE RECORDS SUMMARY | 2025-05-19 22:37 | XMS_ITS | Encounter Summary ---
Author Organization [facility] [facility] Address [address] [facility] 7t [place] [address] Care Team Providers Care Optical Assistant Name Role Phone Mago Street MD Primary Care Provider + [phone] Encounter Details Date Type Department Care Team (Late st Contact Info) Description 07/04/2022 Orders Only [facility] [address] [place] [address] MD [address] [place] [phone] Low vision, unspecified left eye visual impairment category, unspecified right eye visual impairment category (Primary Dx) Social History Tobacco Use Types Packs/Day Years Used Date Smoking Tobacco: Never Assessed Depression Answer Date Recorded Patient Health Questionnaire-2 Score 0 06/21/2022 Comments Unknown Sex and Gender Information Value Date Recorded Sex Assigned at Female 04/08/2022 10:18 AM EDT Legal Sex Female 10:18 AM EDT Gender Identity Female 04/08/2022 10:18 AM EDT Sexual Orientation Straight 04/08/2022 10 :18 AM EDT COVID-19 Exposure Response Date Recorded In the last 10 days, have yo u been in contact with someone who was confirmed or suspected to have Coronavirus/COVID-19? No / Unsure 06/21/2022 9:39 AM EST documented as of this encounter Plan of Treatment Upcoming Encounters Date Type Department Care Team (Late st Contact Info) Description 06/07/2025 3:30 PM EST Clinical Support [facility] [address] [place] [phone] 06/15/2025 3:30 PM EST Office Visit [facility] [address] [facility] [place] [address] MD [address] [facility] [place] [address] documented as of this encounter Visit Diagnoses Diagnosis Low vision, unspecified left eye visual impairment category, unspecified right eye visual impairment category- Primary documented in this encounter Care Teams Optical Assistant Relationship Specialty Start Date End Date Mago Street MD [address] [place], [place] [address]leatha [facility] [place] [address] PCP - General Family Medicine 12/24/13 documented as of this encounter
== END 2025-05-19 15:06 ==
LOC: HO.CHCLDS 15:05
PROVIDERS: Visit Provider Nurse Practitioner
DX: R23.3 Spontaneous ecchymoses (principal)
CPT/HCPCS: 36415; 80053; 85025; 85610; 85730